=== PATIENT | female | born 1965 | race Caucasian/White ===

== ENCOUNTER 2016-04-10 16:55 | Emergency (ER) | payer MEDICAID ==
[2016-04-10] MEDS ORDERED: HYDROmorphONE/DILAUDID 1 MG/ML SYR IVP ONE (18:32)
[2016-04-10] MEDS ORDERED: ONDANSETRON 4 MG/2 ML VIAL IVP ONE (18:32)
[2016-04-10] MEDS ORDERED: NS 1,000 ML IV ONE ×2 (18:32)
[2016-04-10] MEDS ORDERED: FAMOTIDINE 20 MG/NACL 50 ML IV ONE (18:32)
--- NOTE | 2016-04-10 19:55 | EDPHY ---
H & P Time Seen by Provider: 04/10/16 18:29 HPI/ROS: HPI Diarrhea. 51-year-old female on foot with her partner. This patient complains of on and off watery diarrhea for the last month. She denies any bloody or melenic stool. She states she has had a decreased appetite but no nausea or vomiting. She reports her last meal was just prior to being seen by myself in the emergency department. She has not had a fever. No foreign travel. She is currently homeless. ROS: Constitutional: No fever, no chills. No weakness. Eyes: No discharge. No changes in vision. ENT: No sore throat. No nasal congestion or rhinorrhea. Respiratory: No cough. No shortness of breath. Cardiac: No chest pain, no palpitations. Gastrointestinal: No abdominal pain, no vomiting, as above. Genitourinary: No hematuria. No dysuria or increased frequency with urination. Musculoskeletal: No back pain. No neck pain. No myalgias or arthralgias. Skin: No rashes. Neurological: No headache. No focal weakness or altered sensation. Past medical history: As above. Hysterectomy, chronic back pain. Social history: Homeless. Smoker. Here with her friend. Physical Exam: General Appearance: Alert, no distress. This patient is responding to questions appropriately and in full sentences. This patient appears well- hydrated and well-nourished. Eyes: Pupils equal and round no pallor or injection. No lid edema, erythema or injection. Respiratory: There are no retractions, lungs are clear to auscultation with good air movement bilaterally. Cardiovascular: Regular rate and rhythm. No murmur. Gastrointestinal: Abdomen is soft and nontender, no masses, bowel sounds normal. No focal tenderness at McBurney's point. No Burrows sign. Neurological: Motor sensory function is grossly intact. Cranial nerves are normal. Gait is normal. Skin: Warm and dry, no rashes. Musculoskeletal: Neck is supple and nontender. Extremities are symmetrical. All joints range without pain or impingement. Psychiatric: No agitation. No depression. Database: EKG: Imaging: Procedures: Emergency department course: IV was placed. She was placed on a monitor. She was given 2 L of IV normal saline in the emergency department. She received 4 mg of IV Zofran in triage 20 mg of IV Pepcid. Stool studies were ordered for her. She went to the bathroom twice but apparently did not produce a bowel movement and stool studies were not obtained. She was re-evaluated at 7:50 p.m.. She is resting comfortably. She has eaten in her room as has her partner. Repeat abdominal exam she is soft, nontender nondistended. I feel she is safe for discharge. She feels comfortable with this. I recommended follow-up through [facility], there walk-in Clinic for re-evaluation and further management. She is in agreement. Return to emergency department precautions discussed. All of her questions were answered. She was discharged in good condition. Differential Diagnosis: The differential diagnosis on this patient includes but is not limited to viral enteritis, enteric toxigenic E coli. Serious bacterial infection, significant dehydration, abdominal surgical process, gastrointestinal bleeding unlikely. This represents a partial list of diagnoses considered. These considerations are based on history, physical exam, past history and reassessment. Smoking Status: Current every day smoker Constitutional: Initial Vital Signs Temperature (C) 36.6 C 04/10/16 17:02 Heart Rate 82 04/10/16 17:02 Respiratory Rate 17 04/10/16 17:02 Blood Pressure 125/85 H 04/10/16 17:02 O2 Sat (%) 94 04/10/16 17:02 O2 Delivery Mode Room Air Allergies/Adverse Reactions: Sulfa (Sulfonamide Antibiotics) Allergy (Verified 04/10/16 17:02) Home Medications: Medication Instructions Recorded Lisinopril 04/10/16 Medical Decision Making - Data Points Medications Given: Discontinued Medications Hydromorphone HCl (Dilaudid) 0.25 mg IVP EDNOW ONE Stop: 04/10/16 18:33 Last Admin: 04/10/16 19:25 Dose: 0.25 mg Sodium Chloride (Ns) 1,000 mls @ 0 mls/hr IV ONCE ONE PRN Reason: Wide Open Stop: 04/10/16 18:33 Last Admin: 04/10/16 19:24 Dose: 1,000 mls Sodium Chloride (Ns) 1,000 mls @ 0 mls/hr IV ONCE ONE PRN Reason: Wide Open Stop: 04/10/16 18:33 Last Admin: 04/10/16 19:24 Dose: 1,000 mls Famotidine/Sodium Chloride (Pepcid 20 Mg (Premix)) 50 mls @ 200 mls/hr IV EDNOW ONE Stop: 04/10/16 18:46 Last Admin: 04/10/16 19:25 Dose: 50 mls Ondansetron HCl (Zofran) 4 mg IVP EDNOW ONE Stop: 04/10/16 18:33 Last Admin: 04/10/16 19:24 Dose: 4 mg Departure - Departure Disposition: Home, Routine, Self-Care Clinical Impression: Diarrhea Condition: Good Instructions: Chronic Diarrhea (ED) Additional Instructions: Read and follow provided instructions. Follow-up with [facility] in the next 2-3 days for re-evaluation. You can go to the walk-in clinic on [address] from the [facility] in [facility]. There hours are 9 to 5 Saturday through Saturday. You can provide them a stool sample at that time and appropriate studies will be obtained. Keep herself well hydrated by drinking lots of fluids. Return to the emergency department for worsening abdominal pain, fever, rectal bleeding, vomiting and inability to keep fluids down or other serious concerns. Referrals: NONE *PRIMARY CARE P,. [Primary Care Provider] - As per Instructions [facility] [Outside] - As per Instructions
[2016-04-10 20:39] VITALS: BP 125/89; PULSE 64; RESP 16; TEMP 98.2; O2SAT 97
== END 2016-04-10 20:39 | disposition home or self-care (01) ==
DX: R19.7 Diarrhea, unspecified (principal); F17.200 Nicotine dependence, unspecified, uncomplicated
CPT/HCPCS: 96374; J1170; J2405